=== PATIENT | female | born 1965 | race Caucasian/White ===

== ENCOUNTER 2018-03-16 06:54 | Emergency (ER) | payer OTHER ==
[2018-03-16 06:55] VITALS: BMI 33.9
[2018-03-16 07:12] VITALS: RESP 18; TEMP 97.9; O2SAT 97
[2018-03-16] MEDS ORDERED: PROPARACAINE/FLUORESCEIN SOD 100 DROP/5 ML BOTTLE OD STA (07:37)
[2018-03-16] MEDS ORDERED: Oxycodone/Acetaminophen 5/325 mg Tab PO STA (08:01)
[2018-03-16] MEDS ORDERED: PrednisoLONE 1% OPTH SUSP OD STA (09:29)
--- NOTE | 2018-03-16 09:48 | ED PDOC ---
HPI: Eye Injury/Pain Time Seen by Provider: 03/16/18 07:29 Chief Complaint (Nursing): Eye Problem Chief Complaint (Provider): right eye pain History Per: Patient, Family, It Security Engineer History/Exam Limitations: no limitations Onset/Duration Of Symptoms: Days (2 weeks) Current Symptoms Are (Timing): Still Present Severity: Moderate Quality: Sharp Associated Symptoms: Decreased Vision, Swelling, Discharge From Eye Additional Complaint(s): 52yo female hx gluacoma R eye s/p [facility], taking ?eye drops, now notes worsening R eye pain and decreased vision over last 2 weeks. Vision R eye at baseline was poor, prior saw hand waiving, now that's diminished. She thinks stress of family conflict with frequent crying is exacerbating symptoms. No fever, headache or trauma. [place] not seen eye doctor in [place]. Past Medical History Reviewed: Historical Data, Nursing Documentation, Vital Signs Vital Signs: Last Vital Signs Temp 97.9 F 03/16/18 07:11 Pulse 73 03/16/18 07:11 Resp 18 03/16/18 07:11 BP 129/75 03/16/18 07:11 Pulse Ox 97 03/16/18 07:11 - Medical History PMH: Arthritis, HTN Denies: Chronic Kidney Disease Other PMH: glacoma - Surgical History Other surgeries: eye surgery - Family History Family History: States: Unknown Family Hx - Living Arrangements Living Arrangements: With Family - Social History Current smoker - smoking cessation education provided: No - Immunization History Hx Tetanus Toxoid Vaccination: No Hx Influenza Vaccination: No Hx Pneumococcal Vaccination: No - Home Medications Home Medications: Ambulatory Orders Medication Instructions Recorded Lisinopril [Prinivil] 20 mg PO DAILY 07/28/16 Lisinopril [Prinivil] 20 mg PO DAILY #30 tablet 12/14/17 acetaZOLAMIDE [Diamox] 500 mg PO BID #12 tab 03/16/18 oxyCODONE/Acetaminophen [Percocet 1 ea PO Q6 PRN #6 tab 03/16/18 5/325 mg Tab] - Allergies Allergies/Adverse Reactions: Allergies Allergy/AdvReac Type Severity Reaction Status Date / Time No Known Allergies Allergy Verified 03/16/18 07:28 Review of Systems Constitutional: Negative for: Fever Eyes: Positive for: Pain, Vision Change, Redness Cardiovascular: Negative for: Chest Pain Respiratory: Negative for: Cough Gastrointestinal: Negative for: Abdominal Pain Skin: Negative for: Rash Neurological: Negative for: Weakness, Numbness Psych: Negative for: Depression Physical Exam - Reviewed Nursing Documentation Reviewed: Yes Vital Signs Reviewed: Yes - Physical Exam Appears: Positive for: Non-toxic, No Acute Distress Head Exam: Positive for: ATRAUMATIC, NORMAL INSPECTION, NORMOCEPHALIC Skin: Positive for: Normal Color, Warm, DRY Eye Exam: Positive for: Other (R eye injected, mild proptosis with lacrimation, clouded cornea, pupil poorly visualized but appears nonreactive) ENT: Positive for: Normal ENT Inspection Neck: Positive for: Normal, Painless ROM Cardiovascular/Chest: Positive for: Regular Rate, Rhythm Respiratory: Positive for: CNT, Normal Breath Sounds Gastrointestinal/Abdominal: Positive for: Normal Exam, Soft Back: Positive for: Normal Inspection Extremity: Positive for: Normal ROM Neurologic/Psych: Positive for: Alert, Oriented - ECG O2 Sat by Pulse Oximetry: 97 Medical Decision Making Medical Decision Making: R eye flucaine drops no corneal uptake R eye IOP measurements x3 = 26/28/30 D/w Dr Wylie- given 2+ weeks symptoms can see in office tomorrow morning at 9am, he recommended PO diamox 500mg BID and predforte drops, initiated in ED and given the bottle pred forte to take home and use. Discussed importance of followup w daughter and explained this is a sight threatening process/injury. She refused formal bhutanese translation, stated she would translate for patient. Disposition - Clinical Impression Clinical Impression: Glaucoma, Visual loss - Patient ED Disposition Is Patient to be Admitted: No Counseled Patient/Family Regarding: Studies Performed, Diagnosis - Disposition Referrals: Bossman Wylie MD [Staff Provider] - Disposition: Routine/Home Disposition Time: 11:30 Condition: STABLE Additional Instructions: SEE DR WYLIE EYE DOCTOR TOMORROW MORNING AT 9AM AT HIS OFFICE IN [place]. HES EXPECTING YOU. TAKE PREDFORTE DROPS 4X DAILY, ONE DROP TO RIGHT EYE. TAKE DIAMOX PILLS 500MG IN THE MORNING AND AT NIGHT. RETURN TO ER FOR ANY WORSE OR NEW SYMPTOMS/ Prescriptions: acetaZOLAMIDE [Diamox] 500 mg PO BID #12 tab oxyCODONE/Acetaminophen [Percocet 5/325 mg Tab] 1 ea PO Q6 PRN #6 tab PRN Reason: Pain, Severe (8-10) Instructions: Glaucoma, Angle-Closure Glaucoma, Glaucoma Surgery (DC) Forms: [employer] (Ukrainian) Print Language: SLOVAK
[2018-03-16 12:39] VITALS: BP 126/78; PULSE 78
== END 2018-03-16 11:00 | disposition home or self-care (01) ==
LOC: H.ER 06:54
DX: H40.9 Unspecified glaucoma (principal)

== ENCOUNTER 2018-06-15 22:45 | Emergency (ER) | payer OTHER ==
[2018-06-15 22:46] VITALS: BMI 43.8
[2018-06-15 22:54] VITALS: RESP 18; TEMP 98.4; O2SAT 98
[2018-06-15] MEDS ORDERED: DiphenhydrAMINE 50 mg/ml Inj IV STA (23:30)
[2018-06-15] MEDS ORDERED: DiphenhydrAMINE 50 mg/ml Inj ONE (23:52)
[2018-06-15 23:59] LABS: BASO # 0.1 K/uL (0.0-0.2); BASO % 0.8 % (0.0-2.0); EOS # 0.2 K/uL (0.0-0.7); EOS % 3.2 % (0.0-4.0); HEMOGLOBIN 13.5 g/dL (12.0-16.0); LYMPH # 2.1 K/uL (1.0-4.3); LYMPH % 31.6 % (20.0-40.0); MEAN CELL VOLUME 94.5 fl (81.0-99.0); MEAN CORPUSCULAR HEMOGLOBIN 31.3 pg (27.0-31.0); MEAN CORPUSCULAR HGB CONC 33.2 g/dL (33.0-37.0); MEAN PLATELET VOLUME 8.8 fl (7.2-11.7); MONO # 0.5 K/uL (0.0-0.8); MONO % 7.7 % (0.0-10.0); NEUT # 3.8 K/uL (1.8-7.0); NEUT % 56.7 % (50.0-75.0); RBC 4.3 Mil/uL (3.80-5.20); RED CELL DISTRIBUTION WIDTH 13.7 % (11.5-14.5); WHITE BLOOD COUNT 6.7 K/uL (4.8-10.8)
[2018-06-16 00:04] LABS: GFR NON-AFRICAN AMERICAN > 60
[2018-06-16 00:06] LABS: BLOOD UREA NITROGEN 14 mg/dl (7-17)
--- NOTE | 2018-06-16 00:58 | ED PDOC ---
HPI: General Adult Time Seen by Provider: 06/15/18 23:07 Chief Complaint (Nursing): Eye Problem Chief Complaint (Provider): Headache, Rt Eye Pain History Per: Patient History/Exam Limitations: no limitations Onset/Duration Of Symptoms: Days (x2 headache), Other (chronic eye pain) Current Symptoms Are (Timing): Still Present Additional Complaint(s): 52 year old female presents to the ED for evaluation of a headache described as diffuse tension and numbness to the head onset two days ago associated with dizziness - not vertigo - beginning earlier this afternoon. Patient also notes feeling anxious and tense throughout her body. She reports a similar headache last week, but it resolved spontaneously. Additionally, patient complains of right eye pain for several months secondary to dx of glaucoma by her foundation relations manager. She reports chronic visual deficits to the eye. Otherwise, she denies fever, chest pain, vomiting, syncope, and weakness / numbness to the rest of the body. PMD: Tri Cohn Past Medical History Reviewed: Historical Data, Nursing Documentation, Vital Signs Vital Signs: Last Vital Signs Temp 98.4 F 06/15/18 22:47 Pulse 64 06/15/18 22:47 Resp 18 06/15/18 22:47 BP 140/89 06/15/18 22:47 Pulse Ox 98 06/16/18 01:09 - Medical History PMH: Arthritis, HTN Denies: Chronic Kidney Disease Other PMH: glaucoma right eye - Surgical History Other surgeries: rt eye surg x1 yr ago - Family History Family History: States: Unknown Family Hx - Social History Current smoker - smoking cessation education provided: No Alcohol: None Drugs: Denies - Immunization History Hx Tetanus Toxoid Vaccination: No Hx Influenza Vaccination: No Hx Pneumococcal Vaccination: No - Home Medications Home Medications: Ambulatory Orders Medication Instructions Recorded Lisinopril [Prinivil] 20 mg PO DAILY 07/28/16 Lisinopril [Prinivil] 20 mg PO DAILY #30 tablet 12/14/17 acetaZOLAMIDE [Diamox] 500 mg PO BID #12 tab 03/16/18 oxyCODONE/Acetaminophen [Percocet 1 ea PO Q6 PRN #6 tab 03/16/18 5/325 mg Tab] - Allergies Allergies/Adverse Reactions: Allergies Allergy/AdvReac Type Severity Reaction Status Date / Time No Known Allergies Allergy Verified 03/16/18 07:28 Review of Systems ROS Statement: Except As Marked, All Systems Reviewed And Found Negative Constitutional: Negative for: Fever Eyes: Positive for: Pain (right, chronic glaucoma) Cardiovascular: Negative for: Chest Pain Gastrointestinal: Negative for: Vomiting Neurological: Positive for: Headache (diffuse with tension and numbness), Dizziness. Negative for: Weakness, Numbness, Other (syncope) Psych: Positive for: Anxiety Physical Exam - Reviewed Nursing Documentation Reviewed: Yes Vital Signs Reviewed: Yes - Physical Exam Appears: Positive for: No Acute Distress (comfortable) Head Exam: Positive for: ATRAUMATIC, NORMAL INSPECTION, NORMOCEPHALIC Skin: Positive for: Normal Color, Warm, Dry Eye Exam: Positive for: EOMI (bilateral), PERRL (of left eye; right eye: pupils reactive, but cornea is fuzzy - chronic corneal changes), Conjunctival injection (chronic of right eye) ENT: Positive for: Normal ENT Inspection Neck: Positive for: Normal, Painless ROM, Supple Cardiovascular/Chest: Positive for: Regular Rate, Rhythm. Negative for: Murmur Respiratory: Positive for: Normal Breath Sounds. Negative for: Accessory Muscle Use, Respiratory Distress Gastrointestinal/Abdominal: Positive for: Normal Exam, Soft. Negative for: Tenderness Back: Positive for: Normal Inspection Extremity: Positive for: Normal ROM Neurologic/Psych: Positive for: Alert, Oriented (x3), Gait (steady) - Laboratory Results Result Diagrams: 06/15/18 23:47 06/15/18 23:47 - ECG O2 Sat by Pulse Oximetry: 98 (RA) Pulse Ox Interpretation: Normal - Progress Re-evaluation Time: 02:23 Condition: Re-examined, Improved Medical Decision Making Medical Decision Making: Time: 2329 Initial Impression: headache, right eye pain Ddx include: migraine, tension headaches, chronic glaucoma Initial Plan: --Head CT w/o contrast --BMP --Urine dip --CBC with differential --Erythrocyte sedimentation rate --Benadryl 25mg IVP --Reglan 10mg IVP --Toradol 30mg IVP 0033 CT Head FINDINGS: Brain: Normal. No hemorrhage. No significant white matter disease. No edema. Ventricles: Normal. No ventriculomegaly. Bones/joints: Normal. No acute fracture. Sinuses: Normal as visualized. No acute sinusitis. Mastoid air cells: Normal as visualized. No mastoid effusion. Soft tissues: Normal. IMPRESSION: No acute findings Scribe Attestation: Documented by Yesenia Yanes acting as a scribe for Sofia Rodriguez MD Provider Scribe Attestation: All medical record entries made by the Scribe were at my direction and personally dictated by me. I have reviewed the chart and agree that the record accurately reflects my personal performance of the history, physical exam, medical decision making, and the department course for this patient. I have also personally directed, reviewed, and agree with the discharge instructions and disposition. Disposition - Clinical Impression Clinical Impression: Headache, Eye pain - Patient ED Disposition Is Patient to be Admitted: No Doctor Will See Patient In The: Office Counseled Patient/Family Regarding: Studies Performed, Diagnosis, Need For Followup - Disposition Referrals: Tri Cohn MD [Primary Care Provider] - Disposition: Routine/Home Disposition Time: 02:23 Condition: GOOD Additional Instructions: Follow up with your eye doctor in 2-3 days. PRESLEY CONWAY, thank you for letting us take care of you today. Your provider was Sofia Rodriguez MD and you were treated for HEAD/RIGHT EYE PAIN. The emergency medical care you received today was directed at your acute symptoms. If you were prescribed any medication, please fill it and take as directed. It may take several days for your symptoms to resolve. Return to the Emergency Department if your symptoms worsen, do not improve, or if you have any other problems. Please contact your doctor or call one of the physicians/clinics you have been referred to that are listed on the Patient Visit Information form that is included in your discharge packet. Bring any paperwork you were given at discharge with you along with any medications you are taking to your follow up visit. Our treatment cannot replace ongoing medical care by a primary care provider outside of the emergency department. Thank you for allowing the [facility] team to be part of your care today. If you had an X-Ray or CT scan: A Radiologist will review the ED reading if any change in treatment is needed we will contact you. If you had a blood, urine, or wound culture: It will take several days for the results, if any change in treatment is needed we will contact you. If you had an STI test: It will take 48 hours for the results. Please call after 1 week if you have not heard back. Instructions: Headache, Adult, Glaucoma Print Language: [place]
[2018-06-16] MEDS ORDERED: Oxycodone/Acetaminophen 5/325 mg Tab PO ONE (01:33)
[2018-06-16] MEDS ORDERED: Oxycodone/Acetaminophen 5/325 mg Tab ONE (01:38)
[2018-06-16 02:57] VITALS: BP 125/58; PULSE 65
--- NOTE | 2018-06-16 10:54 | CT ---
Date of service: 06/16/2018 PROCEDURE: CT HEAD WITHOUT CONTRAST. HISTORY: headache hx of right eye chronic glaucoma COMPARISON: Unenhanced head CT 10/16/2013. TECHNIQUE: Axial computed tomography images were obtained through the head/brain without intravenous contrast. Radiation dose: Total exam DLP = 847.22 mGy-cm. This CT exam was performed using one or more of the following dose reduction techniques: Automated exposure control, adjustment of the mA and/or kV according to patient size, and/or use of iterative reconstruction technique. FINDINGS: HEMORRHAGE: No intracranial hemorrhage. BRAIN: Normal ariza-white matter differentiation and density are appreciated throughout the cerebrum and cerebellum with the brainstem appearing unremarkable as well. There is no mass effect. There is no suspicious extra-axial fluid collection and the midline brain anatomy appears diffusely unremarkable. VENTRICLES: Unremarkable. No hydrocephalus. CALVARIUM: Unremarkable. PARANASAL SINUSES: Unremarkable as visualized. No significant inflammatory changes. MASTOID AIR CELLS: Unremarkable as visualized. No inflammatory changes. OTHER FINDINGS: Incidental bilateral exophthalmos identified. IMPRESSION: Normal CT of the Head. Incidental bilateral exophthalmos. Discordant V rad preliminary report 05/16/2018.
== END 2018-06-16 02:57 | disposition home or self-care (01) ==
LOC: H.ER 22:45
DX: R51 Headache (principal); H40.9 Unspecified glaucoma; I10 Essential (primary) hypertension; H05.20 Unspecified exophthalmos
CPT/HCPCS: 70450; 80048; 85025; 85651; 96374; 99282; J1200; J1885; J2765